=== PATIENT | female | born 1940 | race Caucasian/White ===

== ENCOUNTER → 2016-10-01 | Outpatient (CLI) | payer MEDICARE, OTHER | LOC: LAB 15:48 | PROVIDERS: ATTEND Internal Medicine Nephrology | DX: N18.4 Chronic kidney disease, stage 4 (severe) (principal) ==

== ENCOUNTER → 2016-10-02 | Outpatient (CLI) | payer MEDICARE, OTHER ==
[~2016-10-02] MED LIST: ACETAMINOPHEN 325 MG TAB PO ONE; SODIUM CHLORIDE 0.9% 500ML 500 ML IVS ONE; diphenhydrAMINE HCL 50 MG/ML VIAL IV ONE
[2016-10-02 19:14] VITALS: BP 111/69; TEMP 97.2; O2SAT 98
== END | disposition home or self-care (01) ==
LOC: TXRM 09:45
PROVIDERS: ATTEND Family Medicine
PROC: 30233N1 Transfusion of Nonautologous Red Blood Cells into Peripheral Vein, Percutaneous Approach (ICD-10-PCS; principal; 2016-10-02 10:00)
DX: D50.0 Iron deficiency anemia secondary to blood loss (chronic) (principal)
CPT/HCPCS: 36430; 86850; 86900; 86901; 86922; 87798; J1200; J7040; P9016

== ENCOUNTER → 2016-10-19 | Outpatient (CLI) | payer MEDICARE, OTHER | LOC: LAB.NP 13:40 | PROVIDERS: ATTEND Internal Medicine Nephrology | DX: N18.4 Chronic kidney disease, stage 4 (severe) (principal); D63.1 Anemia in chronic kidney disease ==

== ENCOUNTER → 2016-11-26 | Outpatient (CLI) | payer MEDICARE, OTHER | END | disposition home or self-care (01) | LOC: GMA 13:49 | PROVIDERS: ATTEND Internal Medicine Nephrology | DX: D63.1 Anemia in chronic kidney disease (principal); N18.4 Chronic kidney disease, stage 4 (severe) ==

== ENCOUNTER → 2016-12-30 | Outpatient (CLI) | payer MEDICARE, OTHER | LOC: GMAH 14:15 | PROVIDERS: ATTEND Family Medicine | DX: N18.2 Chronic kidney disease, stage 2 (mild) (principal) ==

== ENCOUNTER → 2017-03-03 | Outpatient (CLI) | payer MEDICARE, OTHER | END | disposition home or self-care (01) | LOC: GMAH 11:59 | PROVIDERS: ATTEND Family Medicine | DX: D64.9 Anemia, unspecified (principal); N18.2 Chronic kidney disease, stage 2 (mild) ==

== ENCOUNTER → 2017-03-31 | Outpatient (CLI) | payer MEDICARE, OTHER | END | disposition home or self-care (01) | LOC: GMAH 14:33 | PROVIDERS: ATTEND Family Medicine | DX: N18.4 Chronic kidney disease, stage 4 (severe) (principal) ==

== ENCOUNTER → 2017-04-28 | Outpatient (CLI) | payer MEDICARE, OTHER | END | disposition home or self-care (01) | LOC: GMAH 12:06 | PROVIDERS: ATTEND Family Medicine | DX: N18.4 Chronic kidney disease, stage 4 (severe) (principal); M10.00 Idiopathic gout, unspecified site ==

== ENCOUNTER → 2017-04-29 | Day surgery (SDC) | payer MEDICARE, OTHER ==
[~2017-04-29] MED LIST changes: +ACETAMINOPHEN 325 MG TAB ONE; -ACETAMINOPHEN 325 MG TAB PO ONE; -SODIUM CHLORIDE 0.9% 500ML 500 ML IVS ONE; +SODIUM CHLORIDE 0.9% 500ML 500 ML ONE; -diphenhydrAMINE HCL 50 MG/ML VIAL IV ONE; +diphenhydrAMINE HCL 50 MG/ML VIAL ONE
[2017-04-30 16:47] VITALS: BP 142/76; TEMP 98; O2SAT 100
== END | disposition home or self-care (01) ==
LOC: AMB 13:55
PROVIDERS: ATTEND Family Medicine
DX: D50.0 Iron deficiency anemia secondary to blood loss (chronic) (principal); E11.9 Type 2 diabetes mellitus without complications; Z88.0 Allergy status to penicillin; Z88.3 Allergy status to other anti-infective agents
CPT/HCPCS: 36415; 36416; 36430; 82948; 86850; 86900; 86901; 86922; 87070; 87077; 87186; G0463; J1200; J7040; P9016

== ENCOUNTER → 2017-06-02 | Outpatient (CLI) | payer MEDICARE, OTHER | END | disposition home or self-care (01) | LOC: GMAH 15:14 | PROVIDERS: ATTEND Family Medicine | DX: N18.4 Chronic kidney disease, stage 4 (severe) (principal); E03.9 Hypothyroidism, unspecified; M10.00 Idiopathic gout, unspecified site ==

== ENCOUNTER 2017-06-03 06:25 | Outpatient (CLI) | payer MEDICARE, OTHER ==
[2017-06-03] MEDS ORDERED: SODIUM CHLORIDE 0.9% 500ML 500 ML ONE (09:42)
[2017-06-03] MEDS ORDERED: ACETAMINOPHEN 325 MG TAB ONE (09:42)
[2017-06-03] MEDS ORDERED: diphenhydrAMINE HCL 50 MG/ML VIAL ONE (09:43)
[2017-06-03 19:07] VITALS: BP 147/67; TEMP 98; O2SAT 94
== END 2017-06-03 19:15 | disposition home or self-care (01) ==
LOC: AMB 06:25 → EDSTATUS 08:00 → AMB 19:15
PROVIDERS: ATTEND Family Medicine
DX: D50.0 Iron deficiency anemia secondary to blood loss (chronic) (principal)
CPT/HCPCS: 36415; 36430; 86850; 86900; 86901; 86922; J1200; J7040; P9016

== ENCOUNTER 2017-06-16 12:09 | Inpatient (IN) | payer MEDICARE, OTHER ==
--- NOTE | 2017-06-16 12:10 | HP ---
SUPERVISING PHYSICIAN: Beny Millan MD CHIEF COMPLAINT: Lower leg cellulitis. HISTORY OF PRESENT ILLNESS: This is a 77-year-old, female patient who was seen in her primary care physician's office, Dr. Osborne, last week for lower extremity cellulitis. She has a significant history of cellulitis of the lower extremities as well as self-care deficit. She was put on antibiotics in Dr. Osborne's office last week and she came back to see him today and the cellulitis of her legs is not improved. In fact, per Dr. Osborne, it is worse. He called me for an admission to the hospital for bilateral lower leg cellulitis. PAST MEDICAL HISTORY: 1. Diabetes mellitus, type 2. 2. Atrial fibrillation on Eliquis therapy. 3. Hypertension. 4. Chronic renal failure with a baseline creatinine of about 2. 5. Peripheral vascular disease. 6. Gout. 7. Chronic cellulitis of the lower extremities. 8. Hypothyroidism. 9. Osteoporosis. 10. Frequent urinary tract infections. 11. History of severe anemia, followed by Dr. Parker. 12. History of anxiety and depression. PAST SURGICAL HISTORY: 1. Back surgery. CURRENT MEDICATIONS: Per the EMR and awaiting verification. ALLERGIES: LEVAQUIN, PENICILLIN, AMLODIPINE. SOCIAL HISTORY: She lives alone with her son. She quit smoking many years ago. She denies any ETOH or illicit drug use. She does not have home health. She does have someone that takes care of her house. REVIEW OF SYSTEMS: GENERAL: Positive for weakness and fatigue. Denies fever or weight changes. HEENT: Negative for sinus symptoms, ear pain, vision changes. RESPIRATORY: Negative for wheezing, coughing or shortness of breath. CARDIAC: Negative for chest pain, palpitations or tachycardia. GASTROINTESTINAL: complains of hunger and denies nausea, vomiting, diarrhea, constipation or abdominal pain. NEUROLOGIC: Positive for weakness and some dizziness, but denies headaches or seizures. SKIN: As per history of present illness including bilateral heel decubitus ulcers. PHYSICAL EXAMINATION: VITAL SIGNS: Afebrile. Heart rate 118. Blood pressure 128/70. Respiratory rate 22. O2 saturation 92% on room air. GENERAL: This is a 77-year-old, unkempt female patient who is lying in her hospital bed. She looks to be in moderate pain. HEENT: Normocephalic, atraumatic. Pupils are equal and reactive. Oropharynx is clear. Oral mucous membranes are slightly dry. NECK: Supple without mass. RESPIRATORY: Clear to auscultation bilaterally, slightly diminished at the bases. CHEST: There is equal rise and fall of the chest with inspiration and expiration. CARDIOVASCULAR: Regular rhythm, tachycardic rate. ABDOMEN: Soft, nondistended, nontender. Bowel sounds are positive. EXTREMITIES: Bilateral lower extremity edema, with weeping cellulitis from the knee down to the foot. She also has splotchy, erythematous bumps over her both of her entire legs with petechiae and large areas of erythema scattered especially on the medial aspects of both legs. Pedal pulses are faint to +1 and palpable bilaterally. I was unable to examine the decubitus ulcers on her heels due to her pain, but we will examine those later today. NEUROLOGIC: Awake, alert and oriented times three. LABORATORY: Pending. ASSESSMENT: 1. Bilateral lower extremity cellulitis, failed outpatient therapy. 2. Dehydration. 3. Poor self-care deficit. 4. History of atrial fibrillation on Coumadin therapy. 5. Diabetes mellitus, type 2 6. History of chronic anemia. 7. History of chronic lower leg cellulitis. 8. Hypothyroidism. 9. Peripheral vascular disease. PLAN: We will admit the patient to the hospital. I have ordered blood and wound cultures, a urinalysis and routine lab. Pending results of her chemistries, I will give her some IV fluids and we will start her on vancomycin per pharmacy protocol. She will have Lovenox for DVT prophylaxis as well as proton pump inhibitor for ulcer prophylaxis. I will start her on sliding scale insulin. We will do routine labs in the morning. I will also do a CRP. I will place her on telemetry, oxygen and bronchial hygiene. We will continue to monitor the patient closely and follow as needed. Dr. Millan is the collaborating physician and available for consultation. ADDENDUM: 1615 PM. I was called to the patient's room due to the patient's altered mental status. She was responding only to a sternal rub. During this time, her vital signs were stable. Pulse rate 85, blood pressure 114/65, respiratory rate 22 and O2 sat was 99%. She had received Johnston 5/325 about an hour before this altered mental status and so she was given some Narcan. She woke up some, but she would not focus. She just had some mumbling words. Again, her vital signs continue to be stable. The labs were resulted from her admission and sodium was 142, potassium 6, chloride 108, carbon dioxide 28, BUN 108, creatinine 2.72 , glucose 132, serum osmolality 319. CRP was 11.3. WBCs were 5.1 with hemoglobin 7.3, hematocrit 23.7, neutrophils 87.4%, platelet count 88. PT 19.6 with INR 1.74, PTT 31.9. She did have a positive stool occult blood. Urine had not been collected at this time. Shortly thereafter, even though the patient woke up some, she remained very lethargic and would not follow commands. A CT of the head was done. The results of the head CT per radiology interpretation showed no acute intracranial abnormalities given the limitation of motion artifact on the current study with age-related and chronic involutional changes seen. ABGs were also done as well as an ammonia, cardiac enzymes, and a urine drug screen. A mcdowell catheter was placed. LAB: CO2 was 82. Cardiac enzymes were negative. Ammonia was 30. Other labs pending. ASSESSMENT: (To be added to the above diagnoses.) 1. Acute hypercapnic respiratory failure. 2. Severe anemia with hemoglobin 7.3 most likely due to chronic disease state and kidney failure. 3. Altered mental status with a negative head CT. 4. Hyperkalemia with potassium of 6. 5. Sepsis most likely secondary to lower extremity cellulitis with a CRP of 11.3 and heart rate 118 with respiratory rate 22, but may be also due to urinary tract infection as she has a significant history of antibiotic-resistant urinary tract infections. 6. Multiple decubitus ulcerations on her buttock and bilateral heels. Pictures were taken of the ulcers as well as the lower extremity cellulitis areas. 7. Acute on chronic kidney failure with the patient's baseline creatinine being 2.2 and now it is 2.72. PLAN: This patient's prognosis is very, very poor at this point. Due to her respiratory failure will place patient on BiPap and repeat Blood gas in one hour. She is going to get blood for her low hemoglobin as we have typed and crossed and will give 2 units of packed red blood cells. The CT of the head was done and it is negative, but she is on Eliquis for chronic atrial fibrillation. We will be unable to start that because she also had a guaiac positive stool. Will also give her some fluids due to her hyperkalemia. Hopefully we can dilute that down some, but we may have to give her some Kayexalate. We placed a Mcdowell catheter and obtained the urine specimen so we can get a urinalysis and a urine drug screen. Will probable have to start some Rocephin until the cultures are available. She does have a wound culture, blood cultures and a urine culture have been ordered. I am going to also order a urine drug screen as well as pneumonia level and an ABG. Earlier she did have a gag reflex but we will do another gag reflex and order some cardiac enzymes and an EKG. We will need to talk to the son and let him know that it is most likely a very poor outcome. She also has a history of APS being involved multiple times with this patient because of her self care deficit. Laina Van, our Marketing Strategist, has been contacted and we are initiating and APS referral again. Otherwise we will monitor the patient closely and followup as needed. Dr. Millan is the collaborating physician available for consultation. #[id number], [id number] and [id number] [facility]
[2017-06-16] MEDS ORDERED: SODIUM CHLORIDE 0.9% (FLUSH) 10 ML SYG IV PRN (12:36)
[2017-06-16] MEDS ORDERED: HYDROcodone 5MG/APAP 325MG 1 EA TAB PO PRN (12:39)
[2017-06-16] MEDS ORDERED: ACETAMINOPHEN 325 MG TAB PO PRN (12:39)
[2017-06-16] MEDS ORDERED: DEXTROSE 50% 25 GM/50 ML SYG IV PRN (12:53)
[2017-06-16] MEDS ORDERED: GLUCAGON INJ 1 MG VIAL SUBCU PRN (12:53)
[2017-06-16] MEDS ORDERED: IV SET AND CAP CHANGE INJ INJ SCH (13:00)
[2017-06-16] MEDS ORDERED: ENOXAPARIN SODIUM 40 MG/0.4 ML SYG SUBCU SCH (13:00)
[2017-06-16] MEDS ORDERED: VANCOMYCIN PER PHARMACY IVPB SCH (13:00)
[2017-06-16] MEDS ORDERED: PANTOPRAZOLE SODIUM IV 40 MG VIAL IV SCH (13:00)
[2017-06-16] MEDS ORDERED: diphenhydrAMINE HCL 50 MG/ML VIAL IV ONE (14:25)
[2017-06-16] MEDS ORDERED: SODIUM CHLORIDE 0.9% 500ML 500 ML IVS SCH (14:30)
[2017-06-16] MEDS ORDERED: VANCOMYCIN HCL INJ 1,000 MG in SODIUM CHLORIDE 0.9% 250ML 250 ML IVPB ONE (15:00)
[2017-06-16] MEDS: ACETAMINOPHEN 325 MG TAB PO ONE ×2 (15:57→23:55)
[2017-06-16] MEDS: FUROSEMIDE INJ 20 MG/2 ML VIAL IV ONE (15:58)
[2017-06-16] MEDS ORDERED: NALOXONE HCL INJ 0.4 MG/ML VIAL ONE (16:11)
[2017-06-16] MEDS ORDERED: NALOXONE HCL INJ 0.4 MG/ML VIAL IV ONE (16:15)
[2017-06-16] MEDS ORDERED: traMADol HCL 50 MG TAB PO PRN (16:17)
[2017-06-16] MEDS ORDERED: SODIUM CHLORIDE 0.9% 250ML 250 ML ONE (17:17)
[2017-06-16] MEDS ORDERED: VANCOMYCIN HCL INJ 1,000 MG VIAL IVPB ONE (17:17)
[2017-06-16] MEDS: INSULIN LISPRO 100 UNITS/ML PEN SUBCU SCH ×2 (17:28→21:35)
[2017-06-16] MEDS ORDERED: DEX 5% W/NACL 0.45% 1000ML 1,000 ML IVS PRN (19:17)
--- NOTE | 2017-06-16 19:28 | CT ---
PROCEDURE: Head HISTORY: ams Indication: Same as above Comparison: None Technique: CT of the head was done without intravenous contrast was done in the orthogonal planes. This exam was performed according to our departmental dose-optimization program, which includes automated exposure control, adjustment of the mA and/or KV according to the patient's size and/or use of iterative reconstruction technique. FINDINGS: There is no intracranial hemorrhage, midline shift mass effect or acute focal infarct, given the limitation of motion artifact on the current study. There is prominence of the sylvian fissures and the cortical sulci reflecting age related volume loss. There is periventricular and deep white matter low attenuation, most likely related to small vessel white matter ischemic disease. Intracranial vascular calcifications are seen. If clinical concern exists regarding an acute ischemic/vascular pathology being responsible for patient's symptomatology, an MRI of the brain is more sensitive than the current study, in ruling out such a possibility. There is good rucker/white matter differentiation. The ventricular system is normal. The mastoid air cells are unremarkable . The paranasal sinuses show underlying changes of mild left frontal chronic sinusitis . There is no visualization of acute fractures involving the calvarium or the skull base. IMPRESSION: There is no acute intracranial abnormality, given the limitation of motion artifact on the current study. Age related and chronic involutional changes are seen. Electronically signed by: Norman Schaeffer MD 06/16/2017 7:26 PM CDT Workstation: [id number]
--- NOTE | 2017-06-16 23:20 | RAD ---
PROCEDURE: XR CHEST 1 VIEW HISTORY: absent breath sounds COMPARISON: 08/13/2016 TECHNIQUE: Single projection of the chest was done. FINDINGS: Note is made of a skinfold artifact on the left side . There are no discrete airspace infiltrates, pneumothoraces or pleural effusions. The pulmonary vascularity is normal. The cardiomediastinal silhouette is unremarkable for patient's age and sex. IMPRESSION: There is no acute pleural-parenchymal process seen in the imaged lung [place] rio. Location of Interpretation: Teleradiology Electronically signed by: Norman Schaeffer MD 06/16/2017 11:19 PM CDT Workstation: [id number]
[2017-06-16] MEDS ORDERED: cefTRIAXone SODIUM 1 GM in SODIUM CHL 0.9% 50ML MIN-BAG+ 50 ML IVPB SCH (23:45)
[2017-06-16] MEDS ORDERED: ACETAMINOPHEN SUPPOSITORY 650 MG PR ONE (23:50)
[2017-06-17] MEDS ORDERED: SODIUM CHL 0.9% 50ML MIN-BAG+ 50 ML IVPB ONE ×2 (00:06→10:47)
[2017-06-17] MEDS ORDERED: cefTRIAXone SODIUM 1 GM VIAL ONE (00:07)
[2017-06-17] MEDS: FUROSEMIDE INJ 20 MG/2 ML VIAL IV ONE (04:02)
[2017-06-17] MEDS ORDERED: SOD POLYSTYRENE SULFONATE 15 GM/60 ML BTTL PO ONE (07:09)
[2017-06-17] MEDS: INSULIN LISPRO 100 UNITS/ML PEN SUBCU SCH (07:54)
[2017-06-17] MEDS ORDERED: SODIUM CHLORIDE 0.45% 1000ML 1,000 ML IVS PRN (08:31)
[2017-06-17 10:38] VITALS: BP 130/68; TEMP 97.8; O2SAT 86
[2017-06-17] MEDS ORDERED: CEFEPIME 2 GM in SODIUM CHL 0.9% 50ML MIN-BAG+ 50 ML IVPB ONE (10:43)
[2017-06-17] MEDS ORDERED: CEFEPIME 2 GM VIAL IVPB ONE (10:47)
--- NOTE | 2017-06-21 14:19 | DS ---
SUPERVISING PHYSICIAN: Beny Millan MD DISCHARGE DIAGNOSIS: 1. Respiratory distress requiring assistance of BiPAP with respiratory acidosis noted on ABG with severe hypoxemia with PAO2 of 41 on room air, satting 76%. 2. Severe anemia, likely of chronic illness, requiring transfusion of 2 units of packed red blood cells. 3. Acute on chronic renal failure. 4. Electrolyte imbalance with hyperkalemia secondary to renal failure. 5. Bilateral lower extremity cellulitis, failed to respond to outpatient therapy. 6. Bilateral heel pressure ulcers with preliminary cultures showing gram negative gely, probable Pseudomonas. 7. Atrial fibrillation with a controlled ventricular rate on Coumadin. 8. Diabetes mellitus, type 2 9. Hypothyroidism. 10. Severe peripheral vascular disease, contributing to chronic lower extremity cellulitis. 11. Severe self-care deficit. HISTORY OF PRESENT ILLNESS: Ms. Jameson is a 77-year-old, female patient who was seen in her primary care physician's office, Dr. Osborne, the previous week for lower extremity cellulitis. She has a significant history of cellulitis of the lower extremities secondary to self-care deficit, severe peripheral vascular disease as well as complicated by multiple comorbidities. She initially was put on antibiotics in Dr. Osborne's office that previous week and she presented back to the office on the date of admission and the cellulitis of her legs was not improved. She was then admitted to the Medical/Surgical Floor for treatment of underlying bilateral lower extremity cellulitis. LABORATORY: CBC on admission showed hemoglobin 7.3, hematocrit 23.7, white count 5.1. RBC indices indicated a hyperchromic/ macrocytic anemia with platelet count at 88,000. Differential showed a left shift. After 2 units of packed red blood cells, she did improve her hemoglobin and hematocrit and prior to discharge hemoglobin was 9 and hematocrit 28.5. Platelet count had decreased to 79,000. White count was still within normal limits at 8.3. Coagulation studies showed PT 19.6, INR 1.74, PT-T 31.9. Initial blood gas on 06/16/17 at 2230 showed pH 7.13 with PCO2 82, PO2 103. After BiPAP treatment, additional blood gas showed continued acidosis with 7.18 pH, satting 99.5% with PCO2 72, PO2 90, bicarb 25.8. Prior to discharge, repeat ABG on room air showed continued respiratory acidosis with pH 7.29, PCO2 56, sever hypoxemia with PO2 41, saturation 76% on room air. Chemistries on initial presentation showed potassium 6.0, BUN 108, creatinine 2.72, glucose 132, lactic acid was 0.5 , magnesium elevated at 2.7, calcium 8.6 initially. C-reactive protein was 11.3. Liver function within normal limits. She had one set of troponins that were within normal limits at 0.03. Ammonia was normal at 30. Additional laboratory studies prior to discharge on the morning of showed potassium 6.3, sodium 146, BUN 109, creatinine up to 3.06. Liver functions remained within normal limits. Final potassium after Kayexalate prior to transfer was 5.7, BUN 108, creatinine down to 2.72, BNP 588. Urinalysis showed 100 protein, trace lysed blood, 3 to 5 RBCs, 2+ bacteria, 0 to 1 WBCs, 0 to 1 epithelials, small amount of mucus. One occult blood was positive. Toxicology screen was negative for all substances tested. MICROBIOLOGY: C. difficile toxin A and B was negative. Preliminary urine culture at 24 hours showed no growth. Wound culture of the right leg showed gram negative gely with culture pending at time of discharge. Preliminary appeared to be a Pseudomonas species. Two sets of blood cultures remained negative at 24 hours. RADIOLOGY: Head CT without contrast per radiologic interpretation showed no intracranial hemorrhage, midline shifts, mass effects, or acute focal infarcts. Please refer to that report for full details. Chest x-ray on admission per radiologic interpretation showed no acute parenchymal process seen. HOSPITAL COURSE: Ms. Jameson was admitted as noted on 06/16/17 as above in the history of present illness. She was given 2 units of packed red blood cells. She continued to have decline through the night. In fact, she had decreasing mental status, after which it was noted that she was severely hypoxic with respiratory acidosis secondary to respiratory distress. She was started on BiPAP with good response in regard to her mental status, but continued to show by ABG failing respiratory efforts and requiring continuation of BIPAP. Preliminary cultures came back the morning of discharge as a Pseudomonas from the right leg, wound cultures. I discussed the case with Dr. Wray who knows the patient well in regards to renal function and underlying comorbidities. Given her current state of health and requiring BIPAP and advanced wound management, recommendations were to transfer the patient to [facility] for higher level of care. PLAN: The patient was accepted in transfer to [facility] for higher level of care for services not available at [facility] to include nephrology, pulmonology, infectious disease. The patient was transferred by ground on BiPAP. Condition at discharge was guarded, but stable. #[id number] [facility]
== END 2017-06-17 11:51 | disposition short-term general hospital (02) | DRG 871 ==
LOC: MS 12:09
PROVIDERS: ADMIT Nurse Practitioner Acute Care; ATTEND Nurse Practitioner Family
PROC: 30233N1 Transfusion of Nonautologous Red Blood Cells into Peripheral Vein, Percutaneous Approach (ICD-10-PCS; principal; 2017-06-17)
DX: A41.9 Sepsis, unspecified organism (principal); J96.02 Acute respiratory failure with hypercapnia; L03.116 Cellulitis of left lower limb; N17.9 Acute kidney failure, unspecified; L03.115 Cellulitis of right lower limb; E87.5 Hyperkalemia; D63.1 Anemia in chronic kidney disease; L89.629 Pressure ulcer of left heel, unspecified stage; L89.619 Pressure ulcer of right heel, unspecified stage; L89.329 Pressure ulcer of left buttock, unspecified stage; L89.319 Pressure ulcer of right buttock, unspecified stage; E86.0 Dehydration; E11.51 Type 2 diabetes mellitus with diabetic peripheral angiopathy without gangrene; E11.22 Type 2 diabetes mellitus with diabetic chronic kidney disease; R19.5 Other fecal abnormalities; I48.91 Unspecified atrial fibrillation; I12.9 Hypertensive chronic kidney disease with stage 1 through stage 4 chronic kidney disease, or unspecified chronic kidney disease; N18.9 Chronic kidney disease, unspecified; M10.9 Gout, unspecified; E03.9 Hypothyroidism, unspecified; M81.0 Age-related osteoporosis without current pathological fracture; F41.9 Anxiety disorder, unspecified; F32.9 Major depressive disorder, single episode, unspecified; Z87.440 Personal history of urinary (tract) infections; Z88.1 Allergy status to other antibiotic agents; Z88.0 Allergy status to penicillin; Z88.8 Allergy status to other drugs, medicaments and biological substances; Z87.891 Personal history of nicotine dependence; Z79.01 Long term (current) use of anticoagulants

== ENCOUNTER 2017-06-21 16:10 | Inpatient (IN) | payer OTHER ==
--- NOTE | 2017-06-21 16:17 | HP ---
SUPERVISING PHYSICIAN: Alistair Mendez MD REASON FOR HOSPICE ADMISSION: 1. Respiratory failure. 2. Acute renal failure. HISTORY OF PRESENT ILLNESS: Ms. Jameson is a 77-year-old, female patient of Dr. Cordova. She was admitted on 06/16/17 to [facility] for respiratory distress requiring BiPAP, acute on chronic renal failure along with severe bilateral lower extremity cellulitis and pressure ulcers that were growing proteus species. On 06/17/17, the patient was showing declining respiratory efforts requiring BiPAP assistance and after consultation with Dr. Wray it was discussed the patient would be best served by transfer to [facility] for higher level of care. The patient was transferred on 06/17/17 and continued to show decline at [facility] and after multiple days of aggressive treatment, Ms. Jameson's family requested that the patient be moved to hospice care for care and comfort measures only as she was showing minimal response to current medical care efforts. Request for transfer to hospice inpatient care was completed today and the patient was transferred from [facility] and admitted to inpatient hospice care for care and comfort measures with renal failure and worsening respiratory failure. PAST MEDICAL HISTORY: 1. Diabetes mellitus, type 2. 2. Atrial fibrillation, previously on Eliquis therapy. 3. Hypertension. 4. Chronic renal failure. 5. Peripheral vascular disease. 6. Gout. 7. Chronic cellulitis of the lower extremities. 8. Hypothyroidism. 9. Osteoporosis. 10. Multiple than frequent urinary tract infections. 11. Severe anemia. 12. History of anxiety and depression. 13. Severe self-care deficit. PAST SURGICAL HISTORY: 1. Back surgery. CURRENT MEDICATIONS: All home medications were stopped after admission to hospice inpatient care. Please refer to medical records for a list of past home medications. ALLERGIES: LEVAQUIN, PENICILLIN, AMLODIPINE. SOCIAL HISTORY: She lives alone in [place] with her son. She does have a history of smoking, but quit many years ago. She denies any alcohol or illicit drug use. FAMILY HISTORY: unremarkable. REVIEW OF SYSTEMS: Unobtainable secondary to the patient's condition on admission PHYSICAL EXAMINATION: VITAL SIGNS: Temperature 97.9. Pulse 76. Heart irregular rate and rhythm. Blood pressure 107/50. Agonal breaths at 10. Saturation 99% on nasal cannula at rest. Admission weight 37.2 kg GENERAL: The patient appears frail and ill with agonal breaths, unresponsive except for very deep pain stimulus. HEENT: Tympanic membranes clear bilaterally. Pupils equal and reactive. Oropharynx is dry, pink without any lesions. NECK: Supple without any masses. CHEST: Breath sounds diminished throughout with agonal breaths on admission. CARDIOVASCULAR: Slightly irregular rate and rhythm without any appreciable murmurs, gallops, or rubs. ABDOMEN: Soft with very faint bowel sounds. EXTREMITIES: Continued bilateral lower extremity edema with weeping cellulitis from the knee to the distal portion with 1 to 2+ edema bilaterally with large decubitus ulcers on both heels. NEUROLOGIC: The patient is unresponsive except only to deep pain stimulus. LABORATORY: No laboratory and no radiographic studies were obtained. ASSESSMENT: 1. Acute on chronic renal failure with the patient having been admitted to hospice care, refractory to treatment. 2. Worsening respiratory failure. 3. Bilateral lower extremity cellulitis and decubitus ulcers to the heels. 4. Severe dehydration. 5. History of atrial fibrillation on long-term anticoagulation therapy. 6. Diabetes mellitus, type 2 7. Multiple other comorbidities including chronic anemia, hypothyroidism, peripheral vascular disease. PLAN: The patient is to be admitted to inpatient hospice care under the direction of [facility]. Care and comfort measures will be initiated. Orders have been written by [facility] certified nursing assistant. She will be provided pain management as needed with morphine and benzodiazepines for anxiety as needed. DNR is in place. The patient's condition on admission is grim with expected in the near future. Until the patient expires, we will continue to provide close monitoring and assist with hospice care as needed. #[id number] [facility]
[2017-06-21 16:30] VITALS: BP 107/50; TEMP 97.9
[2017-06-21] MEDS ORDERED: SODIUM CHLORIDE 0.9% (FLUSH) 10 ML SYG IV PRN (17:54)
[2017-06-21] MEDS ORDERED: MORPHINE PCA 1 MG/ML 100 ML BAG IVPB SCH (18:00)
[2017-06-21] MEDS ORDERED: IV SET AND CAP CHANGE INJ INJ SCH (18:00)
[2017-06-21] MEDS ORDERED: diphenhydrAMINE HCL 50 MG/ML VIAL IV PRN (18:01)
[2017-06-21] MEDS ORDERED: SODIUM CHLORIDE 0.9% 1000ML 1,000 ML IVS PRN (18:10)
[2017-06-21] MEDS ORDERED: SODIUM CHLORIDE 0.9% 1000ML 1,000 ML ONE (18:11)
--- NOTE | 2017-06-21 19:07 | PCM.CORE ---
Physician DVT/VTE - Contraindications Mechanical Device Contraindication: Treatment not indicated Medication Contraindication: Drug Tx Not Indicated - hospice - Nurse DVT Assessment & Total Each Risk Factor Represents 3 Points: Age over 75 years Each Risk Factor Represents 2 Points: Confined to bed >72 hours DVT Assessment Score: 5
[2017-06-22 00:25] VITALS: O2SAT 84
== END 2017-06-22 05:15 | disposition expired | DRG 682 ==
LOC: MS 16:10
PROVIDERS: ADMIT Nurse Practitioner Family; ATTEND Nurse Practitioner Family
DX: N17.9 Acute kidney failure, unspecified (principal); J96.90 Respiratory failure, unspecified, unspecified whether with hypoxia or hypercapnia; L03.116 Cellulitis of left lower limb; L03.115 Cellulitis of right lower limb; E11.22 Type 2 diabetes mellitus with diabetic chronic kidney disease; N18.9 Chronic kidney disease, unspecified; I48.91 Unspecified atrial fibrillation; E86.0 Dehydration; I12.9 Hypertensive chronic kidney disease with stage 1 through stage 4 chronic kidney disease, or unspecified chronic kidney disease; E11.51 Type 2 diabetes mellitus with diabetic peripheral angiopathy without gangrene; L89.619 Pressure ulcer of right heel, unspecified stage; L89.629 Pressure ulcer of left heel, unspecified stage; M10.9 Gout, unspecified; E03.9 Hypothyroidism, unspecified; M81.0 Age-related osteoporosis without current pathological fracture; D64.9 Anemia, unspecified; Z88.0 Allergy status to penicillin; Z88.1 Allergy status to other antibiotic agents; Z88.8 Allergy status to other drugs, medicaments and biological substances; Z87.891 Personal history of nicotine dependence; Z66 Do not resuscitate; Z51.5 Encounter for palliative care